=== PATIENT | female | born 1965 | race Caucasian/White ===

== ENCOUNTER 2020-09-22 20:49 | Emergency (ER) | payer OTHER ==
[2020-09-22] MEDS ORDERED: SODIUM CHLORIDE 0.9% 1,000 ML IV STA (21:09)
[2020-09-22 21:10] VITALS: RESP 17
--- NOTE | 2020-09-22 21:11 | ED ---
General Adult HPI - General Chief complaint: Syncope Stated complaint: Syncope Time Seen by Provider: 09/22/20 20:59 Source: patient, EMS Mode of arrival: EMS Limitations: no limitations - History of Present Illness Initial comments: Dictation was produced using [employer] dictation software. please excuse any grammatical, word or spelling errors. Chief Complaint: 54-year-old female presents with chief complaint of syncope History of Present Illness: Patient is a 54-year-old female she has past medical history of asthma and hypertension. She is on about all day today planting plants at her house outside. She states she was performing a lot of exertional things. She did report that it was hot outside. She also then felt a little lightheaded and tremulous. She is not sure if she passed out but she strongly feels like she did. She does not have any history of heart failure she feels okay at the moment. She has no complaints of pain. Patient's has syncopized in the past. She has no history of cardiac disease. The ROS documented in this emergency department record has been reviewed and confirmed by me. Those systems with pertinent positive or negative responses have been documented in the HPI. All other systems are other negative and/or noncontributory. PHYSICAL EXAM: General Impression: Alert and oriented x3, not in acute distress HEENT: Normocephalic atraumatic, extra-ocular movements intact, pupils equal and reactive to light bilaterally, mucous membranes moist. Cardiovascular: Heart regular rate and rhythm Chest: Able to complete full sentences, no retractions, no tachypnea Abdomen: abdomen soft, non-tender, non-distended, no organomegaly Musculoskeletal: Pulses present and equal in all extremities, no peripheral edema Motor: no focal deficits noted Neurological: CN II-XII grossly intact, no focal motor or sensory deficits noted Skin: Intact with no visualized rashes Psych: Normal affect and mood ED course: 54-year-old female with no significant past medical history presents with concerns of possible episode of syncope. Return evaluation obtained. CBC shows some hemoconcentration. Metabolic panel shows potassium 3.1. Patient given oral potassium. EKG is unremarkable. No prolonged QT, no signs of WPW, no hocm or brugada. Patient reevaluated at bedside at 10:15 PM found to be in stable medical condition. Patient discharged she is told to increase potassium-containing foods in her diet to maintain adequate hydration. EKG interpretation: Ventricular rate 75, normal sinus rhythm, KS interval 144, QRS 90, QTC 428. No KS prolongation, no QTC prolongation, no ST or T-wave changes noted. Overall, this EKG is unremarkable - Related Data Home Medications Medication Instructions Recorded Confirmed Albuterol Sulfate [Proair Hfa] 1 - 2 puff INHALATION Q6HR PRN 06/16/16 06/16/16 Cyclobenzaprine HCl [Amrix] 15 mg PO HS 06/16/16 06/16/16 Allergies Allergy/AdvReac Type Severity Reaction Status Date / Time No Known Allergies Allergy Verified 06/16/16 10:59 Review of Systems ROS Statement: Those systems with pertinent positive or pertinent negative responses have been documented in the HPI. ROS Other: All systems not noted in ROS Statement are negative. Past Medical History Past Medical History: Asthma, Musculoskeletal Disorder Additional Past Medical History / Comment(s): BACK PAIN History of Any Multi-Drug Resistant Organisms: None Reported Past Surgical History: Back Surgery Additional Past Surgical History / Comment(s): LUMBAR FUSION 2012; PREV SURG FOR HERNIATED DISC Past Anesthesia/Blood Transfusion Reactions: No Reported Reaction Past Psychological History: Depression Smoking Status: Current every day smoker Past Alcohol Use History: Occasional Past Drug Use History: Marijuana - Past Family History Mother Family Medical History: No Reported History General Exam Limitations: no limitations Course Vital Signs 09/22/20 20:54 Temperature 98.6 F Pulse Rate 82 Respiratory 17 Rate Blood Pressure 140/85 O2 Sat by Pulse 96 Oximetry Medical Decision Making - Lab Data Result diagrams: 09/22/20 21:41 09/22/20 21:41 Lab Results 09/22/20 09/22/20 Range/Units 21:41 21:41 WBC 9.5 (3.8-10.6) k/uL RBC 5.48 H (3.80-5.40) m/uL Hgb 16.9 H (11.4-16.0) gm/dL Hct 49.5 H (34.0-46.0) % MCV 90.2 (80.0-100.0) fL MCH 30.8 (25.0-35.0) pg MCHC 34.1 (31.0-37.0) g/dL RDW 13.9 (11.5-15.5) % Plt Count 288 (150-450) k/uL MPV 7.3 Neutrophils % 72 % Lymphocytes % 20 % Monocytes % 6 % Eosinophils % 2 % Basophils % 1 % Neutrophils # 6.8 (1.3-7.7) k/uL Lymphocytes # 1.9 (1.0-4.8) k/uL Monocytes # 0.6 (0-1.0) k/uL Eosinophils # 0.2 (0-0.7) k/uL Basophils # 0.1 (0-0.2) k/uL Sodium 139 (137-145) mmol/L Potassium 3.1 L (3.5-5.1) mmol/L Chloride 101 (98-107) mmol/L Carbon Dioxide 29 (22-30) mmol/L Anion Gap 9 mmol/L BUN 11 (7-17) mg/dL Creatinine 0.98 (0.52-1.04) mg/dL Est GFR (CKD-EPI)AfAm 76 (>60 ml/min/1.73 sqM) Est GFR (CKD-EPI)NonAf 66 (>60 ml/min/1.73 sqM) Glucose 103 H (74-99) mg/dL Calcium 9.8 (8.4-10.2) mg/dL Magnesium 1.6 (1.6-2.3) mg/dL Disposition Clinical Impression: Syncope, Hypokalemia Disposition: HOME SELF-CARE Condition: Fair Instructions (If sedation given, give patient instructions): Hypokalemia (ED), Syncope (ED) Is patient prescribed a controlled substance at d/c from ED?: No Referrals: Rene Chung DO [Primary Care Provider] - 1-2 days
[2020-09-22 21:55] LABS: Basophils # (A) 0.1 k/uL (0-0.2); Basophils % (A) 1 %; Eosinophils # (A) 0.2 k/uL (0-0.7); Eosinophils % (A) 2 %; HCT 49.5 % (34.0-46.0); HGB 16.9 gm/dL (11.4-16.0); Lymphocytes # (A) 1.9 k/uL (1.0-4.8); Lymphocytes % (A) 20 %; MCH 30.8 pg (25.0-35.0); MCHC 34.1 g/dL (31.0-37.0); MCV 90.2 fL (80.0-100.0); Mean Platelet Volume 7.3; Monocytes # (A) 0.6 k/uL (0-1.0); Monocytes % (A) 6 %; Neutrophils # (A) 6.8 k/uL (1.3-7.7); Neutrophils % (A) 72 %; Platelet Count 288 k/uL (150-450); RBC 5.48 m/uL (3.80-5.40); RDW 13.9 % (11.5-15.5); WBC 9.5 k/uL (3.8-10.6)
[2020-09-22 22:09] LABS: Calcium 9.8 mg/dL (8.4-10.2); Magnesium 1.6 mg/dL (1.6-2.3); Potassium 3.1 mmol/L (3.5-5.1)
[2020-09-22] MEDS ORDERED: POTASSIUM CHLORIDE ER 20 MEQ TAB.ER PO STA (22:12)
[2020-09-22 22:41] VITALS: BP 130/85; PULSE 73; TEMP 98.2
== END 2020-09-22 22:41 | disposition home or self-care (01) ==
LOC: EC 20:49
DX: E87.6 Hypokalemia (principal); R55 Syncope and collapse; R42 Dizziness and giddiness; J45.909 Unspecified asthma, uncomplicated; I10 Essential (primary) hypertension; F32.9 Major depressive disorder, single episode, unspecified; F17.200 Nicotine dependence, unspecified, uncomplicated; F12.90 Cannabis use, unspecified, uncomplicated; Z79.51 Long term (current) use of inhaled steroids
CPT/HCPCS: 36415; 80048; 83735; 85025; 93005; 96360; 99284

== ENCOUNTER → 2021-07-09 | Outpatient (CLI) | payer OTHER ==
--- NOTE | 2021-07-09 16:26 | CONS ---
CONSULTATION DATE OF SERVICE: 07/09/2021 This 55-year-old female has been evaluated in Sleep Center for possible obstructive sleep apnea-hypopnea syndrome. HISTORY OF PRESENT ILLNESS/SLEEP-WAKE EVALUATION: Patient's usual sleep schedule is from 2 a.m. until 9 a.m. She does have problems with falling asleep, has TV set in bedroom. She usually sleeps on the side position. She does have restless leg symptoms while falling asleep and has twitching of the legs during sleep. She grinds her teeth. According to her spouse, she has loud snoring and witnessed episodes of stopped breathing during sleep. She wakes up from sleep two times, with one episode of nocturia. Positive history of sleeptalking. No history of hypnagogic hallucinations, sleep paralysis or cataplexy. In the morning the patient wakes up tired, worries about her sleep, has episodes of irritability, depression, anxiety, claustrophobia. [place] Sleepiness Scale significantly increased at 11. She takes a nap in the afternoon time. PAST MEDICAL HISTORY: Positive for hypertension, asthma, acid reflux, depression, anxiety. PAST SURGICAL HISTORY: Lumbar fusion in the level of L5. SOCIAL HISTORY: Positive for smoking about half pack a day for 30 years. Alcohol consumption occasional. FAMILY HISTORY: Positive for sleep apnea by in her mother. REVIEW OF SYSTEMS: Loud snoring, multiple awakenings from sleep, sleepiness during the day. No fevers. No double vision. No recent chest pain. No shortness of breath. No abdominal pain. No bleeding episodes. No blood in the urine. No seizure episodes. PHYSICAL EXAMINATION: GENERAL: Pleasant female without distress. VITAL SIGNS: BP 163/87, HR 79, RR 18, height 5 feet 2-1/2 inches, weight 144.2 pounds, body mass index 25.9, temperature 97.8, oxygen saturation at room air 97%. HEENT: PERRLA, EOMI, evaluation of oropharynx showed tongue protrudes midline. Extremely low position of soft palate; Mallampati IV. NECK: Supple, no JVD. Thyroid is not palpable. Neck measures 13-3/4 inches in circumference. LUNGS: Clear to percussion and to auscultation. Good air exchange. No wheezing or rhonchi. HEART: S1, S2 regular. No murmurs, gallops, or rubs. ABDOMEN: Soft and nontender. Bowel sounds are present. No organomegaly appreciated. EXTREMITIES: No clubbing or cyanosis. ABALONE DIVER: Awake, alert, and oriented X3. Cranial nerves 2 to 7 intact. There is no fasciculation or atrophy. noted. No focal deficits observed. IMPRESSION: 1. Loud snoring, witnessed episodes of stopped breathing during sleep, extremely low position of soft palate, Mallampati IV, sleepiness, [place] Sleepiness Scale increased at 11; obstructive sleep apnea-hypopnea syndrome. 2. Hypertension. 3. Asthma. 4. Smoker for 30 years, half pack a day; continues smoking. 5. Restless leg symptoms. 6. Possible periodic limb movements. 7. Acid reflux. 8. History of depression. 9. History of anxiety. 10.Status post lumbar fusion on the level L5. PLAN: 1. Polysomnography for evaluation of patient's breathing during sleep. 2. CPAP/BiPAP titration if sleep study confirms obstructive sleep apnea-hypopnea syndrome. 3. Preferable position during sleep on the side. 4. No driving if patient feels any sleepiness. 5. I will see patient for follow up visit to explain results of testing and following plan. Thank you very much for referring this patient for consultation. Sincerely, Alon Luke MD, PhD, FAASM Diplomat of [employer] Sleep Medicine Board of [place] [employer] Religious Education Director of [facility] [place] ALVARO / NAYANA: [phone] /
== END ==
LOC: SLEEP 11:23
PROVIDERS: ATTEND Internal Medicine
DX: G47.33 Obstructive sleep apnea (adult) (pediatric) (principal); I10 Essential (primary) hypertension; J45.909 Unspecified asthma, uncomplicated; F17.210 Nicotine dependence, cigarettes, uncomplicated; G25.81 Restless legs syndrome; K21.9 Gastro-esophageal reflux disease without esophagitis; F32.A Depression, unspecified; F41.9 Anxiety disorder, unspecified; Z98.1 Arthrodesis status
CPT/HCPCS: 99211

== ENCOUNTER → 2021-09-17 | Outpatient (CLI) | payer OTHER ==
--- NOTE | 2021-09-17 14:44 | SFUN ---
SLEEP CENTER FOLLOW UP NOTE DATE OF SERVICE: 09/17/2021 This 55-year-old gentleman has been followed in Sleep Center and came in to discuss results of his sleep study and following plan. I discussed results of his sleep study with the patient in detail. No significant respiratory abnormalities. Normal oxygenation during sleep. Lowest level of oxygen 90%. EMG showed 26.3 periodic limb movements per hour with 8 microarousals per hour. Sometimes the patient feels sleepiness during the day. [place] Sleepiness Scale today is borderline at 10. MEDICATIONS: Zoloft, amlodipine, testosterone. PHYSICAL EXAMINATION: GENERAL: Pleasant patient in no distress. VITAL SIGNS: BP 149/81, HR 88, RR 16, height 5 feet 3 inches, weight 137 pounds. Body mass index 24.2. Temperature 98.2. Oxygen saturation at room air 98%. HEENT: PERRLA, EOMI. Evaluation of oropharynx showed tongue protrudes midline. Extremely low position of soft palate; Mallampati IV. NECK: Supple, no JVD. Thyroid is not palpable. LUNGS: Clear to percussion and to auscultation. Good air exchange. No wheezing or rhonchi. HEART: S1, S2 regular. No murmurs, gallops, or rubs. ABDOMEN: Soft and nontender. Bowel sounds are present. No organomegaly appreciated. EXTREMITIES: No clubbing or cyanosis. OWNER PROFESSIONAL ENGINEER: Awake, alert, and oriented X3. Cranial nerves 2 to 7 intact. There is no fasciculation or atrophy. noted. No focal deficits observed. IMPRESSION: 1. No significant respiratory abnormalities during the sleep study. 2. Periodic limb movements were documented during the sleep study; 26 times per hour with 8 microarousals per hour. 3. Hypertension. 4. History of asthma. 5. Smoker. Continues to smoke. 6. History of restless leg symptoms. 7. Acid reflux. 8. History of depression. 9. History of anxiety. 10.Status post lumbar fusion at the level L5. PLAN: 1. We will try Mirapex 0.125 mg one tablet at bedtime to prevent periodic limb movements and restless leg symptoms. 2. Sleep hygiene with regular time in bed for at least 8 hours. 3. No driving if feeling any sleepiness. 4. Please check iron profile, including ferritin level. Low level of iron may increase risk for periodic limb movements. also may increase risk for periodic limb movements. 5. If the patient continues to have symptoms of excessive daytime sleepiness, we may consider multiple sleep latency test for objective evaluation. Thank you very much for allowing me to participate in the management of your patient. Sincerely, Alon Luke MD, PhD, FAASM Diplomat of [place] Sleep Medicine Board of [place] Fern Cutter of [facility] [place] MMLASHA / NAYANA: [phone] /
== END ==
LOC: SLEEP 10:43
PROVIDERS: ATTEND Internal Medicine
DX: Z09 Encounter for follow-up examination after completed treatment for conditions other than malignant neoplasm (principal); G47.61 Periodic limb movement disorder; I10 Essential (primary) hypertension; J45.909 Unspecified asthma, uncomplicated; F17.200 Nicotine dependence, unspecified, uncomplicated; G25.81 Restless legs syndrome; F32.A Depression, unspecified; F41.9 Anxiety disorder, unspecified; Z98.1 Arthrodesis status; Z79.899 Other long term (current) drug therapy

== ENCOUNTER 2023-10-22 19:57 | Emergency (ER) | payer OTHER ==
--- NOTE | 2023-10-22 20:06 | ED ---
General Adult HPI - General Chief complaint: Seizure Stated complaint: Syncopal episode Time Seen by Provider: 10/22/23 20:06 Source: patient, RN notes reviewed Mode of arrival: EMS Limitations: no limitations - History of Present Illness Initial comments: This is a 57-year-old male presents the emergency department via EMS chief complaint of a syncopal event. Patient states that he was sitting in his chair in the living room when he started to feel lightheaded, dizzy, experienced tunnel vision. He states at this time he had an episode of emesis and then had a syncopal event. Denies falling or hitting his the time of this event. He states that he has had syncopal events in the past and has a history of low potassium. He states that he has not had anything to drink today, had 1 small meal around breakfast time. He denies personal history of CA, CVA, DVT, PE. Currently he is denying headaches, chest pain, chest pressure, dizziness, light headedness, dyspnea, nausea. He denies fevers, chills, abdominal pain. - Related Data Allergies Allergy/AdvReac Type Severity Reaction Status Date / Time No Known Allergies Allergy Verified 10/22/23 20:05 Review of Systems ROS Statement: Those systems with pertinent positive or pertinent negative responses have been documented in the HPI. ROS Other: All systems not noted in ROS Statement are negative. Past Medical History Past Medical History: Asthma, Hypertension History of Any Multi-Drug Resistant Organisms: None Reported Additional Past Surgical History / Comment(s): lumbar fusion, herniated disc Past Psychological History: Anxiety, Depression Smoking Status: Current every day smoker Past Alcohol Use History: Rare Past Drug Use History: Marijuana General Exam Limitations: no limitations General appearance: alert, in no apparent distress Head exam: Present: atraumatic, normocephalic, normal inspection Eye exam: Present: normal appearance, PERRL, EOMI. Absent: scleral icterus, conjunctival injection, periorbital swelling ENT exam: Present: normal exam, mucous membranes moist Neck exam: Present: normal inspection. Absent: tenderness, meningismus, lymphadenopathy Respiratory exam: Present: normal lung sounds bilaterally. Absent: respiratory distress, wheezes, rales, rhonchi, stridor Cardiovascular Exam: Present: regular rate, normal rhythm, normal heart sounds. Absent: systolic murmur, diastolic murmur, rubs, gallop, clicks GI/Abdominal exam: Present: soft, normal bowel sounds. Absent: distended, tenderness, guarding, rebound, rigid Extremities exam: Present: normal inspection, full ROM, normal capillary refill. Absent: tenderness, pedal edema, joint swelling, calf tenderness Back exam: Present: normal inspection Neurological exam: Present: alert, oriented X3, CN II-XII intact Psychiatric exam: Present: normal affect, normal mood Skin exam: Present: warm, dry, intact, normal color. Absent: rash Course Vital Signs 10/22/23 10/22/23 10/22/23 20:00 21:10 21:52 Temperature 98.3 F 97.8 F Pulse Rate 60 52 L 51 L Respiratory 18 16 16 Rate Blood Pressure 125/80 106/69 117/73 O2 Sat by Pulse 99 97 95 Oximetry Medical Decision Making - Medical Decision Making Was pt. sent in by a medical professional or institution (, PA, MEDICAL RECORDS DIRECTOR, urgent care, hospital, or halfway...) When possible be specific @ -No Did you speak to anyone other than the patient for history (EMS, parent, family, police, friend...)? What history was obtained from this source @ -To the patient's significant other at bedside who detail that the patient had a syncopal event which resulted in him having a episode of emesis and contorting his wrist. Did you review nursing and triage notes (agree or disagree)? Why? @ -I reviewed and disagree with the nursing triage note. On my discussion with the patient he explained his symptoms during the time of the syncopal episode. The symptoms do not align with a seizure. Additionally patient denies history of seizures or visiting with a neurologist. Were old charts reviewed (outside hosp., previous admission, EMS record, old EKG, old radiological studies, urgent care reports/EKG's, halfway records)? Report findings @ -No old charts were reviewed Differential Diagnosis (chest pain, altered mental status, abdominal pain women, abdominal pain men, vaginal bleeding, weakness, fever, dyspnea, syncope, headache, dizziness, GI bleed, back pain, seizure, CVA, palpatations, mental health, musculoskeletal)? @ -Differential Syncope: Valvular disease, hypertrophic cardiomyopathy, pulmonary embolism, tamponade, tachycardia, bradycardia, CA, hypovolemia, hemorrhage, dissection, anemia, intracranial hemorrhage, seizure, hypoglycemia, carbon monoxide poisoning, this is not meant to be an all-inclusive list. EKG interpreted by me (3pts min.). @ -completed at 2030, sinus bradycardia, ventricular rate 58, VA interval 147, QTc 426. No acute signs of ischemia. X-rays interpreted by me (1pt min.). @ -None done CT interpreted by me (1pt min.). @ -None done U/S interpreted by me (1pt. min.). @ -None done What testing was considered but not performed or refused? (CT, X-rays, U/S, labs)? Why? @ -None What meds were considered but not given or refused? Why? @ -None Did you discuss the management of the patient with other professionals (jaylen dean i.e. , PA, MEDICAL RECORDS DIRECTOR, lab, RT, psych nurse, social services assistant, tack puller, teacher, nuclear medicine officer, correctional case manager)? Give summary @ -No Was smoking cessation discussed for >3mins.? @ -No Was critical care preformed (if so, how long)? @ -No Were there social determinants of health that impacted care today? How? (Homelessness, low income, unemployed, alcoholism, drug addiction, transportation, low edu. Level, literacy, decrease access to med. care, custodial, rehab)? @ -No Was there de-escalation of care discussed even if they declined (Discuss DNR or withdrawal of care, Hospice)? DNR status @ -No What co-morbidities impacted this encounter? (DM, HTN, Smoking, COPD, CAD, Cancer, CVA, ARF, Chemo, Hep., AIDS, mental health diagnosis, sleep apnea, morbid obesity)? @ -None Was patient admitted / discharged? Hospital course, mention meds given and route, prescriptions, significant lab abnormalities, going to OR and other pertinent info. @ -Discharge. 57-year-old male with a syncopal episode. On examination of the patient he is currently denying any symptoms of headache, nausea, abdominal pain. Comprehensive physical examination completed with no acute findings. Patient will be evaluated via laboratory studies and a cardiac workup including EKG. He will be continued on IV fluids. Labs including CBC, CMP, coagulation profile, troponin, and creatinine kinase all within normal limits. EKG nonconcerning for acute ischemia or arrhythmia. On reevaluation the patient, he is still asymptomatic and states that he is "feeling well "recommend the patient follows up with his primary care provider next week for further evaluation. All questions have been answered at bedside and strict return parameters discussed with the patient he has verbalized understanding. Case discussed with Dr. Pippa wise. Undiagnosed new problem with uncertain prognosis? @ -No Drug Therapy requiring intensive monitoring for toxicity (Heparin, Nitro, Insulin, Cardizem)? @ -No Were any procedures done? @ -No Diagnosis/symptom? @ -syncope Acute, or Chronic, or Acute on Chronic? @ -acute Uncomplicated (without systemic symptoms) or Complicated (systemic symptoms)? @ -uncomplicated Side effects of treatment? @ -No Exacerbation, Progression, or Severe Exacerbation? @ -No Poses a threat to life or bodily function? How? (Chest pain, USA, CA, pneumonia, PE, COPD, DKA, ARF, appy, cholecystitis, CVA, Diverticulitis, Homicidal, Suicidal, threat to staff... and all critical care pts) @ -No - Lab Data Result diagrams: 10/22/23 20:11 10/22/23 20:11 Lab Results 10/22/23 10/22/23 10/22/23 Range/Units 20:11 20:11 20:11 WBC 7.6 (3.8-10.6) k/uL RBC 5.38 (4.30-5.90) m/uL Hgb 16.8 (13.0-17.5) gm/dL Hct 52.3 (39.0-53.0) % MCV 97.2 (80.0-100.0) fL MCH 31.2 (25.0-35.0) pg MCHC 32.2 (31.0-37.0) g/dL RDW 12.9 (11.5-15.5) % Plt Count 254 (150-450) k/uL MPV 7.5 Neutrophils % 52 % Lymphocytes % 38 % Monocytes % 5 % Eosinophils % 4 % Basophils % 1 % Neutrophils # 3.9 (1.3-7.7) k/uL Lymphocytes # 2.8 (1.0-4.8) k/uL Monocytes # 0.4 (0-1.0) k/uL Eosinophils # 0.3 (0-0.7) k/uL Basophils # 0.1 (0-0.2) k/uL PT 11.7 (10.0-12.5) sec INR 1.1 (<1.2) APTT 23.5 (22.0-30.0) sec Sodium 135 L (137-145) mmol/L Potassium 3.5 (3.5-5.1) mmol/L Chloride 106 (98-107) mmol/L Carbon Dioxide 22 (22-30) mmol/L Anion Gap 7 mmol/L BUN 20 (9-20) mg/dL Creatinine 0.81 (0.66-1.25) mg/dL Est GFR (CKD-EPI)AfAm >90 (>60 ml/min/1.73 sqM) Est GFR (CKD-EPI)NonAf >90 (>60 ml/min/1.73 sqM) Glucose 94 (74-99) mg/dL Calcium 8.9 (8.4-10.2) mg/dL Magnesium 1.8 (1.6-2.3) mg/dL Total Bilirubin 0.8 (0.2-1.3) mg/dL AST 27 (17-59) U/L ALT 20 (4-49) U/L Alkaline Phosphatase 54 (38-126) U/L Creatine Kinase 130 (55-170) U/L Troponin I (0.000-0.034) ng/mL Total Protein 6.3 (6.3-8.2) g/dL Albumin 3.9 (3.5-5.0) g/dL 10/22/23 Range/Units 20:11 WBC (3.8-10.6) k/uL RBC (4.30-5.90) m/uL Hgb (13.0-17.5) gm/dL Hct (39.0-53.0) % MCV (80.0-100.0) fL MCH (25.0-35.0) pg MCHC (31.0-37.0) g/dL RDW (11.5-15.5) % Plt Count (150-450) k/uL MPV Neutrophils % % Lymphocytes % % Monocytes % % Eosinophils % % Basophils % % Neutrophils # (1.3-7.7) k/uL Lymphocytes # (1.0-4.8) k/uL Monocytes # (0-1.0) k/uL Eosinophils # (0-0.7) k/uL Basophils # (0-0.2) k/uL PT (10.0-12.5) sec INR (<1.2) APTT (22.0-30.0) sec Sodium (137-145) mmol/L Potassium (3.5-5.1) mmol/L Chloride (98-107) mmol/L Carbon Dioxide (22-30) mmol/L Anion Gap mmol/L BUN (9-20) mg/dL Creatinine (0.66-1.25) mg/dL Est GFR (CKD-EPI)AfAm (>60 ml/min/1.73 sqM) Est GFR (CKD-EPI)NonAf (>60 ml/min/1.73 sqM) Glucose (74-99) mg/dL Calcium (8.4-10.2) mg/dL Magnesium (1.6-2.3) mg/dL Total Bilirubin (0.2-1.3) mg/dL AST (17-59) U/L ALT (4-49) U/L Alkaline Phosphatase (38-126) U/L Creatine Kinase (55-170) U/L Troponin I <0.012 (0.000-0.034) ng/mL Total Protein (6.3-8.2) g/dL Albumin (3.5-5.0) g/dL Disposition Clinical Impression: Syncope Disposition: HOME SELF-CARE Condition: Good Instructions (If sedation given, give patient instructions): Syncope (DC) Additional Instructions: Return to the emergency department if symptoms worsen or not improve. Recommend a follow-up with your primary care provider next week for further evaluation. Continue to increase oral rehydration. Is patient prescribed a controlled substance at d/c from ED?: No Referrals: Rene Chung DO [Primary Care Provider] - 1-2 days Time of Disposition: 21:43
[2023-10-22] MEDS: SODIUM CHLORIDE 0.9% 1,000 ML IV STA (20:37)
[2023-10-22 20:48] LABS: Basophils # (A) 0.1 k/uL (0-0.2); Basophils % (A) 1 %; Eosinophils # (A) 0.3 k/uL (0-0.7); Eosinophils % (A) 4 %; HCT 52.3 % (39.0-53.0); HGB 16.8 gm/dL (13.0-17.5); Lymphocytes # (A) 2.8 k/uL (1.0-4.8); Lymphocytes % (A) 38 %; MCH 31.2 pg (25.0-35.0); MCHC 32.2 g/dL (31.0-37.0); MCV 97.2 fL (80.0-100.0); Mean Platelet Volume 7.5; Monocytes # (A) 0.4 k/uL (0-1.0); Monocytes % (A) 5 %; Neutrophils # (A) 3.9 k/uL (1.3-7.7); Neutrophils % (A) 52 %; Platelet Count 254 k/uL (150-450); RBC 5.38 m/uL (4.30-5.90); RDW 12.9 % (11.5-15.5); WBC 7.6 k/uL (3.8-10.6)
[2023-10-22 21:07] LABS: ALT 20 U/L (4-49); African American GFR (CKD) >90 (>60 ml/min/1.73 sqM); Albumin 3.9 g/dL (3.5-5.0); Anion Gap 7 mmol/L; Blood Urea Nitrogen 20 mg/dL (9-20); Calcium 8.9 mg/dL (8.4-10.2); Carbon Dioxide 22 mmol/L (22-30); Chloride 106 mmol/L (98-107); Creatine Kinase 130 U/L (55-170); Glucose 94 mg/dL (74-99); Non-African American GFR(CKD) >90 (>60 ml/min/1.73 sqM); Sodium 135 mmol/L (137-145); Total Bilirubin 0.8 mg/dL (0.2-1.3); Total Protein 6.3 g/dL (6.3-8.2)
[2023-10-22 21:09] LABS: AST 27 U/L (17-59); Alkaline Phosphatase 54 U/L (38-126); Magnesium 1.8 mg/dL (1.6-2.3); Potassium 3.5 mmol/L (3.5-5.1)
[2023-10-22 21:14] LABS: INR 1.1 (<1.2); Partial Thromboplastin Time 23.5 sec (22.0-30.0); Prothrombin Time 11.7 sec (10.0-12.5)
[2023-10-22 21:53] VITALS: RESP 16
[2023-10-22 21:54] VITALS: BP 117/73; PULSE 51; TEMP 97.8
== END 2023-10-22 21:54 | disposition home or self-care (01) ==
LOC: EDSEX → MERGE 19:57 → EC 19:57
DX: R55 Syncope and collapse (principal); F17.200 Nicotine dependence, unspecified, uncomplicated
CPT/HCPCS: 36415; 80053; 82550; 83735; 84484; 85025; 85610; 85730; 93005; 96360; 99285

== ENCOUNTER → 2024-10-30 | Outpatient (CLI) | payer OTHER ==
--- NOTE | 2024-11-05 19:37 | MR ---
EXAMINATION TYPE: MR wrist LT wo con DATE OF EXAM: 10/30/2024 10:56 AM COMPARISON: Left wrist radiographs 10/16/2024. CLINICAL INDICATION: Male, 58 years old with history of M25.532 PAIN IN LEFT WRIST; PHH, Lt wrist mehnaz n into hand and fingers, lump on lateral wrist TECHNIQUE: Multiplanar multisequence imaging of the wrist. No Gadolinium given. FINDINGS: Joint spaces/articular cartilage and alignment: * Multilobulated minimally complex cystic structure deep to the symptomatology marker overlying the volar aspect of the distal ulna, appears to emanate from the DRUJ. The largest locule measures up to 1.1 cm. * High-grade cartilage loss with small subchondral cysts at the first CMC joint with small joint eff usion. Additional juxta articular millimetric cystic foci about the first CMC which may represent micky glion the absence of contrast. Flexor retinaculum: Intact Flexor tendons: Intact Extensor tendons: Intact. Mild extensor carpi ulnaris tendinosis. Abductors/adductor tendons: Intact Intrinsic carpal ligaments: Attenuated T1 signal with intermediate fluid sensitive signal, likely on the basis of degeneration. Extrinsic carpal ligaments: Intact Triangular fibrocartilage complex: Intermediate signal of the peripheral attachment of the dorsal ban d, likely degeneration. No discrete tear. Neurovascular structures: Unremarkable. Marrow: Degenerative changes above. No acute fracture or marrow replacing process. Soft tissues: Unremarkable. IMPRESSION: 1. Multiloculated cystic structure deep to the symptomatology marker appears to emanate from the MICHELLE J and may represent ganglion in the absence of contrast versus less likely joint effusion with synovi tis. 2. First CMC joint predominant osteoarthrosis with additional small presumed ganglion. [facility], , 11/05/2024 7:35 PM
== END | disposition home or self-care (01) ==
LOC: RADMRIMAIN 10:16
PROVIDERS: ATTEND Orthopaedic Surgery
DX: M18.12 Unilateral primary osteoarthritis of first carpometacarpal joint, left hand (principal); M67.432 Ganglion, left wrist